=== PATIENT | female | born 1960 | race Caucasian/White ===

== ENCOUNTER 2019-07-21 20:26 | Emergency (ER) | payer SELFPAY ==
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
--- NOTE | ~2019-07-21 | CT_ITS ---
EXAMINATION: CT brain wo con, CT cervical spine wo con EXAM DATE: 07/21/2019 21:04 INDICATION: Fall, posterior right head injury. TECHNIQUE: Spiral CT of the head was performed without contrast. Axial, coronal and sagittal images were reviewed. Spiral CT of the cervical spine was performed without contrast. Axial images were rev iewed. Coronal and sagittal reformatted images were also reviewed. The dose-length product (DLP) fo r this examination was 681.00 (accession [id number]), 204.39 (accession [id number]) mGy-cm. The exposure was tailored according to patient size, and iterative reconstruction (ASIR) was used as additional dose reduction technique. There is no prior study for comparison. FINDINGS: HEAD CT: Left-sided choroidal fissure cyst. There is no acute intraparenchymal hemorrhage. No eviden ce of intraparenchymal brain mass lesion. No evidence of acute infarction. There is no mass effect o r midline shift. There is no obstructive hydrocephalus suspected. There are no extra-axial collectio ns. There are no acute calvarial fractures. The orbits are unremarkable. Soft tissue is unremarkab le. The visualized sinuses and mastoid air cells are well aerated. CERVICAL CT: There is no evidence of acute cervical fracture. The odontoid process is intact. Pre- dens space is normal. Prevertebral soft tissue is normal. There are no soft tissue abnormalities id entified. There is no disc space widening or traumatic vertebral body subluxation suspected. Overal l moderate cervical spondylosis. A detailed level by level evaluation of spondylosis can be added as addendum if requested. IMPRESSION: 1. No acute intracranial or cervical findings. Reviewed, dictated and finalized at location A. ORIZER IMPRESSION: 1. No acute intracranial or cervical findings.
[2019-07-21 20:20] VITALS: BP 131/67; PULSE 60; RESP 16; TEMP 36.4; O2SAT 100
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
[2019-07-21 21:54] VITALS: BP 131/78; PULSE 78; RESP 16; O2SAT 100
== END 2019-07-21 21:55 | disposition home or self-care (01) ==
PROVIDERS: Emergency Provider Emergency Medicine
DX: S06.0X0A Concussion without loss of consciousness, initial encounter (principal); I10 Essential (primary) hypertension; I48.0 Paroxysmal atrial fibrillation; Z79.01 Long term (current) use of anticoagulants; Z91.81 History of falling; Y93.K1 Activity, walking an animal; W10.9XXA Fall (on) (from) unspecified stairs and steps, initial encounter
CPT/HCPCS: 70450; 72125; 73502; 73521; 99284

== ENCOUNTER 2022-05-15 17:03 | Outpatient (CLI) | payer SELFPAY ==
--- NOTE | ~2022-05-15 | XR_ITS ---
EXAMINATION: XR chest 2V DATE: 05/15/2022 17:25 INDICATION: Amiodarone therapy. ASD repair 6 years prior. TECHNIQUE: PA and lateral views of the chest were obtained. COMPARISON: Chest radiograph dated 06/09/2018 FINDINGS: Mild hyperexpansion of lungs with some flattening of the diaphragm mild streaky atelectasis/scarring at the lingula. No other airspace opacities, pulmonary edema, pleural effusion or pneumothorax. The c ardiomediastinal silhouette is normal. Amplatz type ASD closure device in expected position. Moderate mid to upper thoracic spondylosis. IMPRESSION: 1. Mild hyperexpansion of the lungs with mild atelectasis/scarring at the lingula. Reviewed, dictated and finalized at location A. IMPRESSION: 1. Mild hyperexpansion of the lungs with mild atelectasis/scarring at the lingu la.
== END 2022-05-15 17:04 | disposition home or self-care (01) ==
LOC: ANHIMG 17:09
PROVIDERS: PCP Family Medicine; Visit Provider Internal Medicine Cardiovascular Disease
DX: Z79.899 Other long term (current) drug therapy (principal); R91.8 Other nonspecific abnormal finding of lung field
CPT/HCPCS: 71046

== ENCOUNTER 2022-06-09 08:57 | Outpatient (CLI) | payer SELFPAY ==
--- NOTE | 2022-06-09 15:34 | WPDPFTINT ---
PFT Procedure Performed PFT Procedure Performed Plethysmography (Lung Vol) Diffusing Cap (DLCO) Flow Vol Loop Spirometry w/o Bronchodil PFT Interpretation This is a pulmonary function test with spirometry, plethysmography and diffusing capacity. The test was performed and results interpreted in accordance with the 2019 and 2005 ATS/ERS Task Force guidelines respectively using the Global Lung Function Initiative-2012 reference equations. Patient demonstrated good effort and cooperation. Reproducibility criteria were met. The quality of the spirometry maneuver was Grade A. Findings: Spirometry: The contour the inspiratory and expiratory flow tracing are normal. The FVC is 3.54 L, 112% predicted. The FEV1 is 2.55 L, 103% predicted. The FEV1: FVC ratio 72%. Plethysmography: The total lung capacity is 5.71 L, 112% predicted. The functional residual capacity is 3.31 L, 115% predicted. The residual volume is 2.17 L, 108% predicted. Diffusion capacity: The diffusion capacity unadjusted for hemoglobin and carboxyhemoglobin is 17.4, 81% predicted. The diffusing capacity adjusted for alveolar volume is 4.06, 92% predicted. Impression: The spirometry is normal without evidence of an obstructive abnormality. The lung volumes are normal. The diffusing capacity is normal. There are no prior studies for comparison
== END 2022-06-09 08:58 | disposition home or self-care (01) ==
PROVIDERS: PCP Family Medicine; Visit Provider Internal Medicine Cardiovascular Disease
DX: Z79.899 Other long term (current) drug therapy (principal)
CPT/HCPCS: 94375; 94726; 94729